=== PATIENT | male | born 1990 | race Caucasian/White ===

== ENCOUNTER 2022-06-05 16:18 | Emergency (ER) | payer BC ==
[~2022-06-05] VITALS: Ht 172.7 cm; Wt 77.1 kg
--- NOTE | 2022-06-05 18:05 | NUR ---
[employer] AT BEDSIDE FOR EVAL.
[2022-06-05] MEDS ORDERED: ONDANSETRON HCL/PF 4 MG/2 ML VIAL ONE (18:15)
[2022-06-05] MEDS: IV NS 0.9% 1,000 ML BAG IV ONE (18:19)
[2022-06-05] MEDS: ONDANSETRON HCL/PF 4 MG/2 ML VIAL IV ONE (18:20)
--- NOTE | 2022-06-05 18:21 | NUR ---
IV LINE STARTED BLOOD DRAWN AND SENT TO LAB.
--- NOTE | 2022-06-05 18:28 | NUR ---
RADIOLOGY AT BEDSIDE FOR ABDOMINAL KUB.
[2022-06-05 19:03] LABS: CALCIUM, SERUM 8.8 mg/dL (8.5-10.1); POTASSIUM 3.7 mmol/L (3.5-5.1)
[2022-06-05 19:09] LABS: ALBUMIN 4.4 g/dL (3.4-5.0); BILIRUBIN,DIRECT 0.1 mg/dL (0.0-0.2); BILIRUBIN,TOTAL 0.6 mg/dL (0.2-1.0); TOTAL PROTEIN, SERUM 7.4 g/dL (6.4-8.2)
[2022-06-05 19:49] LABS: BASOPHILS % (AUTO) 0.4 % (0.0-2.0); EOSINOPHILS % (AUTO) 0.4 % (0.0-6.0); HEMATOCRIT 46 % (39-51); HEMOGLOBIN 15.6 g/dL (13.5-17.5); LYMPHOCYTES # (AUTO) 2.2 K/uL (0.8-4.8); LYMPHOCYTES % (AUTO) 34.5 % (20.0-44.0); MEAN CORPUSCULAR HGB CONC 34 g/dl (31.0-36.0); MEAN CORPUSCULAR VOLUME 89 fL (80-96); MONOCYTES # (AUTO) 0.4 K/uL (0.1-1.30); MONOCYTES % (AUTO) 6.4 % (2.0-12.0); NEUTROPHILS # (AUTO) 3.7 K/uL (1.8-8.9); NEUTROPHILS % (AUTO) 58.3 % (43.0-81.0); PLATELET COUNT (AUTO) 152 K/uL (150-450); RED BLOOD CELL COUNT(AUTO) 5.15 MIL/uL (4.5-6.0); WHITE BLOOD COUNT (AUTO) 6.4 K/uL (4.3-11.0)
[2022-06-05] MEDS ORDERED: POLY119P2 PO (20:01)
[2022-06-05] MEDS ORDERED: MAGN296S72 PO (20:01)
--- NOTE | 2022-06-05 20:07 | NUR ---
Patient discharged to home in stable condition. Written and verbal after care instructions given. Patient verbalizes understanding of instruction.
[2022-06-05 21:03] VITALS: BP 119/75
== END 2022-06-05 21:03 | disposition home or self-care (01) ==
LOC: ER 17:29
DX: K59.00 Constipation, unspecified (principal); Z79.899 Other long term (current) drug therapy
CPT/HCPCS: 99284; 96374; 96361; 74018; 85025; 80048; 80076; 36415; J2405; J7030

== ENCOUNTER 2025-09-06 11:23 | Emergency (ER) | payer BC ==
[~2025-09-06] VITALS: Ht 170.2 cm; Wt 81.6 kg
[~2025-09-06 11:23] MED LIST: MAGN296S72 PO; POLY119P2 PO
[2025-09-06 12:42] LABS: PLATELET COUNT (AUTO) 120 K/uL (150-450); RED BLOOD CELL COUNT(AUTO) 5.18 MIL/uL (4.5-6.0); RED CELL DISTRIBUTION WIDTH 13.8 % (11.5-15.0); WHITE BLOOD COUNT (AUTO) 3.9 K/uL (4.3-11.0)
[2025-09-06] MEDS ORDERED: ACETAMINOPHEN ES 500 MG TABLET ONE (12:55)
[2025-09-06] MEDS: ACETAMINOPHEN ES 500 MG TABLET PO ONE (12:56)
[2025-09-06 13:09] LABS: ASPARTATE AMINOTRANSFERASE 29 U/L (15-37); CALCIUM, SERUM 8.8 mg/dL (8.5-10.1); CREATININE 1.1 mg/dL (0.6-1.3); NT-PRO BNP 20 pg/mL (0-125); SODIUM SERUM 144 mmol/L (136-145); TOTAL PROTEIN, SERUM 7.0 g/dL (6.4-8.2); UREA NITROGEN, BLOOD 10 mg/dL (7-18)
[2025-09-06 13:48] VITALS: BP 125/80; TEMP 98.5; O2SAT 99
== END 2025-09-06 13:44 | disposition home or self-care (01) ==
LOC: ER 11:23
DX: R55 Syncope and collapse (principal)
CPT/HCPCS: 36415; 70450-TC; 71045-TC; 80048-TC; 80076-TC; 82962-TC; 83880; 84484-TC; 85025-TC